=== PATIENT | male | born 1955 | race Two or more races ===

== ENCOUNTER 2024-08-26 09:26 | Inpatient (IN) | payer MEDICARE ==
[2024-08-26] VITALS (40 sets, daily range): BP systolic 70–150; BP diastolic 55–135; PULSE 79–175; RESP 11–36; TEMP 37.72524–39.33648; O2SAT 85–100
[~2024-08-26] VITALS: Ht 165.1 cm; Wt 70.3 kg
[2024-08-26] MEDS ORDERED: ACETAMINOPHEN 650MG SUPP PR PRN (10:00)
[2024-08-26 10:06] LABS: BG BASE EXCESS -3.7 mmol/L (-2.0-3.0); BG DEOXYHEMOGLOBIN 3.6 % (0.0-5.0); BG FRACTION INSPIRED OXYGEN 50; BG HCO3 ACT 23.8 mmol/L (21.0-28.0); BG METHEMOGLOBIN 0.4 % (0.5-1.5); BG OXYGEN SATURATION 96.3 % (94.0-98.0); BG PCO2 52.2 mmHg (35.0-48.0); BG PH 7.276 (7.350-7.450); BG PO2 95.2 mmHg (83.0-108.0); BG SAMPLE SITE RIGHT RADIAL; BG TOTAL HEMOGLOBIN 15.3 g/dL (13.5-17.5); BG TOTAL RESPIRATORY RATE 12 b/min; BG VENT MODE VENT - AC
[2024-08-26 10:08] LABS: CLARITY URINE CLEAR (CLEAR); COLOR URINE YELLOW (YELLOW); GLUCOSE URINE TRACE (NEGATIVE); KETONES URINE 2+ (NEGATIVE); LEUKOCYTE ESTERASE URINE NEGATIVE (NEGATIVE); NITRITE URINE NEGATIVE (NEGATIVE); OCCULT BLOOD URINE 2+ (NEGATIVE); PH URINE 7.5 (4.5-8.0); PROTEIN URINE 3+ (NEGATIVE); SPECIFIC GRAVITY URINE 1.011 (1.005-1.030)
[2024-08-26] MEDS ORDERED: MIDAZOLAM 100MG/100ML PMX 100 ML IV PRN (10:15)
[2024-08-26] MEDS: ETOMIDATE 2MG/ML 10ML VIAL IV ONE (10:24)
[2024-08-26 10:25] LABS: BASOPHILS % 0.3 % (0.0-2.0); EOSINOPHILS % 0.9 % (0.0-5.0); HEMATOCRIT. 43.7 % (42.0-52.0); HEMOGLOBIN. 14.2 g/dL (14.0-18.0); LYMPHOCYTES % 14.2 % (20.0-50.0); MEAN CORPUSCULAR HEMOGLOBIN 29.6 pg (28.0-32.0); MEAN CORPUSCULAR HGB CONC 32.4 g/dL (31.0-37.0); MEAN CORPUSCULAR VOLUME 91.3 fL (80.0-94.0); MEAN PLATELET VOLUME 10.3 fl (7.4-10.4); MONOCYTES % 4.2 % (2.0-8.0); NEUTROPHILS % 80.4 % (40.0-76.0); PLATELET 157 x1000/uL (130-400); RED BLOOD CELL COUNT 4.79 mill/uL (4.7-6.1); RED CELL DISTRIBUTION WIDTH 13.6 % (11.6-14.6); WHITE BLOOD COUNT 19.2 x1000/uL (4.5-11.0)
[2024-08-26] MEDS: ROCURONIUM BROMIDE 10MG/ML VIAL 5ML IV ONE (10:25)
[2024-08-26] MEDS: PROPOFOL 200MG/20ML VIAL IV ONE (10:25)
[2024-08-26 10:30] LABS: *AMPHETAMINES SCREEN URINE NEGATIVE (NEGATIVE); *BARBITURATES SCREEN URINE NEGATIVE (NEGATIVE); *BENZODIAZEPINES SCREEN URINE NEGATIVE (NEGATIVE); *COCAINE SCREEN URINE NEGATIVE (NEGATIVE); METHADONE URINE SCREEN NEGATIVE (NEGATIVE); OPIATES URINE SCREEN NEGATIVE (NEGATIVE); PHENCYCLIDINE URINE SCREEN NEGATIVE (NEGATIVE)
[2024-08-26 10:31] LABS: CANNABINOID URINE SCREEN NEGATIVE (NEGATIVE); ECSTASY MDMA SCREEN URINE NEGATIVE (NEGATIVE)
[2024-08-26 10:40] LABS: CHLORIDE 102 mEq/L (98-107); SODIUM 139 mEq/L (136-145)
[2024-08-26 10:41] LABS: CALCIUM 8.4 mg/dL (8.7-10.4); CARBON DIOXIDE 24 mEq/L (21-32)
[2024-08-26 10:46] LABS: CREATININE 1.3 mg/dL (0.6-1.3); GLUCOSE 182 mg/dL (70-105); UREA NITROGEN BLOOD 17 mg/dL (9-23)
[2024-08-26] MEDS: MIDAZOLAM 100MG/100ML PMX 100 ML IV PRN (10:46)
[2024-08-26 10:48] LABS: PHOSPHORUS 5.8 mg/dL (2.5-4.9)
[2024-08-26 11:03] LABS: ETHANOL BLOOD < 10 mg/dL (<10)
[2024-08-26 11:04] LABS: TROPONIN I HIGH SENSITIVITY 684 ng/L (3.0-53)
[2024-08-26 11:05] LABS: BACTERIA URINE TRACE; SQUAMOUS EPITHELIAL CELL URINE NONE SEEN /lpf (RARE/1+)
[2024-08-26] MEDS: METOPROLOL TARTRATE 5MG/5ML VIAL IV ONE ×3 (12:27→13:00)
[2024-08-26] MEDS ORDERED: VANCOMYCIN 1G PREMIX 200 ML IV SCH (12:30)
[2024-08-26] MEDS ORDERED: SODIUM CHLORIDE 0.9% 1,000 ML IV ONE (12:30)
[2024-08-26] MEDS ORDERED: DILTIAZEM HCL 5MG/ML 5ML VIAL IV NR ×2 (12:45→20:15)
[2024-08-26] MEDS: ACETAMINOPHEN 650MG/20.3ML UDC NG PRN (12:47)
[2024-08-26] MEDS ORDERED: AMLO10TA80 PO (14:55)
[2024-08-26] MEDS ORDERED: LISI-186 PO (14:55)
[2024-08-26] MEDS ORDERED: TAMS-11 PO (14:55)
[2024-08-26] MEDS ORDERED: FINA5TAB11 PO (14:55)
[2024-08-26] MEDS: ACETAMINOPHEN 650MG SUPP PR SCH (15:27)
[2024-08-26] MEDS: NOREPINEPHRINE 8MG/250ML PMX 250 ML IV PRN (16:05)
[2024-08-26 16:34] LABS: BG BASE EXCESS -0.1 mmol/L (-2.0-3.0); BG CARBOXYHEMOGLOBIN 0.5 % (0.5-1.5); BG DEOXYHEMOGLOBIN 1.1 % (0.0-5.0); BG FRACTION INSPIRED OXYGEN 50; BG HCO3 ACT 21.2 mmol/L (21.0-28.0); BG METHEMOGLOBIN 0.3 % (0.5-1.5); BG OXYGEN SATURATION 98.9 % (94.0-98.0); BG OXYHEMOGLOBIN 98.1 % (94.0-98.0); BG PH 7.529 (7.350-7.450); BG PO2 135.5 mmHg (83.0-108.0); BG SAMPLE SITE LEFT RADIAL; BG TOTAL HEMOGLOBIN 13.8 g/dL (13.5-17.5); BG VENT MODE VENT - AC
[2024-08-26] MEDS ORDERED: ASPIRIN 81MG TABLET NG SCH (18:00)
[2024-08-26] MEDS ORDERED: HEPARIN 5000 UNITS/ML VIAL IV SCH (18:00)
[2024-08-26] MEDS ORDERED: POTASSIUM CHLORIDE 20MEQ/PACKET NG NR (18:00)
[2024-08-26] MEDS ORDERED: HEPARIN 25,000 UNITS PREMIX 250 ML IV PRN (18:00)
[2024-08-26] MEDS ORDERED: HEPARIN 5000 UNITS/ML VIAL IV PRN ×2 (18:00)
[2024-08-26] MEDS: PIPERACILLIN/TAZO 3.375G/50ML 50 ML IV SCH (19:09)
[2024-08-26] MEDS ORDERED: IOHEXOL-350 100 ML BOTTLE ONE ×2 (19:50→23:37)
[2024-08-26 19:51] LABS: INR 1.3; PARTIAL THROMBOPLASTIN TIME 28.5 sec (23.4-31.0)
[2024-08-26] MEDS ORDERED: AMIODARONE HCL 150 MG in DEXT 5% WATER 100 ML IV ONE (20:30)
[2024-08-26] MEDS: PROPOFOL 10MG/ML 100ML 100 ML IV PRN (20:35)
[2024-08-26] MEDS: AMIODARONE 150MG/100ML 100 ML IV NR (20:36)
[2024-08-26] MEDS: DILTIAZEM HCL 125 MG in DEXT 5% WATER 100 ML IV PRN (20:50)
[2024-08-26] MEDS: AMIODARONE HCL 900 MG in DEXT 5% WATER 500 ML IV PRN (22:30)
[2024-08-26] MEDS: PHENYLEPHRINE 100 MG in DEXT 5% WATER 240 ML IV PRN (22:33)
[2024-08-27] VITALS (75 sets, daily range): BP systolic 115–154; BP diastolic 73–90; PULSE 0–126; RESP 14–39; TEMP 37.39188–38.72532; O2SAT 90–100
[2024-08-27 08:42] LABS: BASOPHILS % 0.3 % (0.0-2.0); EOSINOPHILS % 0.1 % (0.0-5.0); HEMATOCRIT. 41.3 % (42.0-52.0); HEMOGLOBIN. 13.7 g/dL (14.0-18.0); LYMPHOCYTES % 10.3 % (20.0-50.0); MEAN CORPUSCULAR HEMOGLOBIN 30.1 pg (28.0-32.0); MEAN CORPUSCULAR HGB CONC 33.1 g/dL (31.0-37.0); MEAN PLATELET VOLUME 10.9 fl (7.4-10.4); MONOCYTES % 8.1 % (2.0-8.0); NEUTROPHILS % 81.2 % (40.0-76.0); PLATELET 171 x1000/uL (130-400); RED BLOOD CELL COUNT 4.54 mill/uL (4.7-6.1); RED CELL DISTRIBUTION WIDTH 13.9 % (11.6-14.6); WHITE BLOOD COUNT 20.1 x1000/uL (4.5-11.0)
[2024-08-27 08:44] LABS: CHLORIDE 104 mEq/L (98-107); POTASSIUM 3.5 mEq/L (3.5-5.1); SODIUM 140 mEq/L (136-145)
[2024-08-27 08:45] LABS: CALCIUM 8.1 mg/dL (8.7-10.4); CARBON DIOXIDE 26 mEq/L (21-32)
[2024-08-27 08:50] LABS: CREATININE 1.5 mg/dL (0.6-1.3); GLUCOSE 122 mg/dL (70-105); UREA NITROGEN BLOOD 30 mg/dL (9-23)
[2024-08-27 08:52] LABS: PHOSPHORUS 4.9 mg/dL (2.5-4.9)
[2024-08-27 10:53] LABS: BG CARBOXYHEMOGLOBIN 0.3 % (0.5-1.5); BG DEOXYHEMOGLOBIN 2.1 % (0.0-5.0); BG FRACTION INSPIRED OXYGEN 50; BG HCO3 ACT 21.5 mmol/L (21.0-28.0); BG OXYGEN SATURATION 97.9 % (94.0-98.0); BG OXYHEMOGLOBIN 97.6 % (94.0-98.0); BG PCO2 36.6 mmHg (35.0-48.0); BG PH 7.386 (7.350-7.450); BG PO2 105.4 mmHg (83.0-108.0); BG SAMPLE SITE LEFT RADIAL; BG TOTAL HEMOGLOBIN 14.9 g/dL (13.5-17.5); BG TOTAL RESPIRATORY RATE 17 b/min; BG VENT MODE VENT - AC
[2024-08-27] MEDS: MIDAZOLAM 100MG/100ML PMX 100 ML IV PRN (17:18)
[2024-08-27] MEDS ORDERED: ACETAMINOPHEN 650MG/20.3ML UDC NG PRN (17:45)
[2024-08-27] MEDS: ACETAMINOPHEN 650MG SUPP PR PRN (18:17)
[2024-08-27] MEDS: PROPOFOL 10MG/ML 100ML 100 ML IV PRN (21:26)
== END 2024-08-28 01:27 ==
LOC: ER 09:26 → EDBEDREQ 11:08 → EDBEDREQTM 11:08 → MICUNO 13:45
PROVIDERS: ADMIT Internal Medicine; ATTEND Internal Medicine
PROC: 5A1945Z Respiratory Ventilation, 24-96 Consecutive Hours (ICD-10-PCS; principal; 2024-08-26)
PROC: 0BH17EZ Insertion of Endotracheal Airway into Trachea, Via Natural or Artificial Opening (ICD-10-PCS; 2024-08-26)
PROC: 5A12012 Performance of Cardiac Output, Single, Manual (ICD-10-PCS; 2024-08-26)
PROC: 06HY33Z Insertion of Infusion Device into Lower Vein, Percutaneous Approach (ICD-10-PCS; 2024-08-26)
PROC: B54BZZA Ultrasonography of Right Lower Extremity Veins, Guidance (ICD-10-PCS; 2024-08-26)
PROC: 02HV33Z Insertion of Infusion Device into Superior Vena Cava, Percutaneous Approach (ICD-10-PCS; 2024-08-26)
PROC: B548ZZA Ultrasonography of Superior Vena Cava, Guidance (ICD-10-PCS; 2024-08-26)
PROC: 5A2204Z Restoration of Cardiac Rhythm, Single (ICD-10-PCS; 2024-08-26)
DX: I21.4 Non-ST elevation (NSTEMI) myocardial infarction (principal); I71.010 Dissection of ascending aorta; J96.02 Acute respiratory failure with hypercapnia; J96.01 Acute respiratory failure with hypoxia; G93.1 Anoxic brain damage, not elsewhere classified; E87.4 Mixed disorder of acid-base balance; I31.39 Other pericardial effusion (noninflammatory); I47.20 Ventricular tachycardia, unspecified; I47.10 Supraventricular tachycardia, unspecified; I49.01 Ventricular fibrillation; I46.2 Cardiac arrest due to underlying cardiac condition; Z66 Do not resuscitate; I95.9 Hypotension, unspecified; E87.6 Hypokalemia; I11.9 Hypertensive heart disease without heart failure; I25.10 Atherosclerotic heart disease of native coronary artery without angina pectoris; D72.829 Elevated white blood cell count, unspecified; W18.30XA Fall on same level, unspecified, initial encounter; Y93.89 Activity, other specified; Y92.009 Unspecified place in unspecified non-institutional (private) residence as the place of occurrence of the external cause; Y99.8 Other external cause status
CPT/HCPCS: 31500; 36415; 36600; 71045; 71275; 80048; 80305; 80320; 81003; 82375; 82805; 82962; 83605; 83735; 84100; 84478; 84484; 85025; 87070; 93005; 93306; 94003; 99291; J0282; J2250; J2543; J2704; J3490; J7030; J7060; Q9967; G0480